=== PATIENT | female | born 1975 | race Caucasian/White ===

== ENCOUNTER → 2021-01-24 | Outpatient (CLI) | payer BC | LOC: ECHO 01-10 09:30 | DX: R07.89 Other chest pain (principal) | CPT/HCPCS: ECHO; 93306 ==

== ENCOUNTER → 2021-03-04 | Outpatient (CLI) | payer BC | LOC: NM 02-26 15:00 | DX: R07.9 Chest pain, unspecified (principal) | CPT/HCPCS: 93017 ==